=== PATIENT | male | born 1995 | race Caucasian/White ===

== ENCOUNTER 2021-08-05 13:10 | Emergency (ER) | payer OTHER ==
[~2021-08-05] VITALS: Ht 188 cm; Wt 81.8 kg
[2021-08-05] MEDS ORDERED: FLUORESCEIN SODIUM 1 MG STRIP OU ONE (14:15)
[2021-08-05 15:16] VITALS: BP 136/87
[2021-08-05] MEDS ORDERED: ACETAMINOPHEN 325 MG TABLET ONE (15:37)
[2021-08-05] MEDS ORDERED: ACETAMINOPHEN 325 MG TABLET PO ONE (15:45)
== END 2021-08-05 15:43 | disposition home or self-care (01) ==
LOC: EMS 13:15
DX: H20.9 Unspecified iridocyclitis (principal)
CPT/HCPCS: 99283